=== PATIENT | male | born 1985 | race Caucasian/White ===

== ENCOUNTER 2017-05-14 05:46 | Inpatient (IN) | payer MEDICAID ==
[2017-05-14] VITALS (64 sets, daily range): BP systolic 80–163; BP diastolic 26–95
[~2017-05-14] VITALS: Ht 142.2 cm; Wt 34.9 kg
[~2017-05-14 05:46] MED LIST: ATI2I IVP; BISA10SU46 RC; BLOO1STR10 MC; DOCU60SY; HEPA500055 SUBQ; HUMSLIDE SUBQ; IBUP100S22; LAS20I IVP; ONDA2SOL45 IM/IVP; POLYO TP; [UNRECOGNIZED DRUG - CODE]
--- NOTE | 2017-05-14 05:48 | NUR ---
[facility] TO ER BED 3
[2017-05-14] MEDS ORDERED: LEVOFLOXACIN 750 MG/D5W PREMIX 150 ML IV ONE (05:55)
[2017-05-14] MEDS ORDERED: NACL 0.9% 1,000 ML IV ONE ×2 (05:55→07:15)
[2017-05-14] MEDS ORDERED: PIPERACILLIN/TAZOBACTAM 3.375 GM in DEXTROSE 5% 50 ML IV ONE (05:55)
[2017-05-14] MEDS ORDERED: VANCOMYCIN 1,000 MG in DEXTROSE 5% 250 ML IV ONE (05:55)
--- NOTE | 2017-05-14 05:55 | NUR ---
32Y M BIB [facility] FROM [facility] HAVING RESPIRATORY DISTRESS, PT ON 100% NRB AND PT HAS TACHYPNEA, O2 SAT 95-98%. LUNGS WITH CRACKLES ALL OVER. PT UNRESPONSIVE WITH HX OF CP AND SZ. MONITORED CLOSELY. SBP 70-80'S AND DBP 40-50'S. ERMD AWARE AND WITH ORDERS TO START PT ON FLUIDS AND ABT'S.
[2017-05-14] MEDS ORDERED: ALBUTEROL SULFATE/IPRATROPIU 3 ML SOL IH ONE (06:00)
[2017-05-14] MEDS ORDERED: PIPERACILLIN/TAZOBACTAM 3.375 GM VIAL IV ONE (06:09)
[2017-05-14] MEDS ORDERED: VANCOMYCIN 1,000 MG VIAL ONE (06:10)
--- NOTE | 2017-05-14 06:35 | NUR ---
DR BRAMBILA INSERTED LT JUGULAR CENTRAL LINE W/O COMPLICATION. PROCEDURE TOLERATED WELL.
[2017-05-14 06:48] LABS: HEMOGLOBIN 8.1 g/dL (12.0-18.0); MEAN CORPUSCULAR HEMOGLOBIN 29 pg (27-31); MEAN CORPUSCULAR HGB CONC 33 g/dL (33-37); MEAN CORPUSCULAR VOLUME 90 fL (80-94); PLATELET COUNT (AUTO) 105 K/uL (140-450); RED BLOOD CELL COUNT(AUTO) 2.78 MIL/uL (4.20-6.10); RED CELL DISTRIBUTION WIDTH 17.6 % (11.6-13.7); WHITE BLOOD COUNT (AUTO) 3.5 K/uL (4.8-10.8)
[2017-05-14 06:56] LABS: ALBUMIN 1.3 g/dL (3.4-5.0); ANION GAP 12.3 (8-16); CARBON DIOXIDE 23.9 mmol/L (21-32); CREATININE 0.4 mg/dL (0.7-1.3); TOTAL BILIRUBIN 0.2 mg/dL (0.0-1.0); TOTAL PROTEIN, SERUM 4.6 g/dL (6.4-8.2)
[2017-05-14] MEDS ORDERED: NOREPINEPHRINE 4 MG in DEXTROSE 5% 250 ML IV ONE (07:00)
--- NOTE | 2017-05-14 07:10 | NUR ---
PT NOTED W/ IV 22 GAUGE TO RT FA, PER PREVIOUS RN, ESTABLISHED IN FIELD, IV 20 GAUGE TO LEFT FA, ESTABLISHED BY PREVIOUS RN, AND CENTRAL LINE TO LEFT JUGULAR ESTABLISHED BY ER MD DR. RUIZ; IV SITES PATENT, NO REDNESS OR INFILTRATION NOTED TO SITES AT THIS TIME. WILL CONTINUE TO MONITOR.
[2017-05-14 07:11] LABS: POTASSIUM 2.2 mmol/L (3.5-5.1)
[2017-05-14 07:12] LABS: CALCIUM 5.3 mg/dL (8.5-10.1)
[2017-05-14] MEDS ORDERED: CALCIUM CHLORIDE 10% 1,000 MG in NACL 0.9% 100 ML IV ONE (07:15)
[2017-05-14] MEDS ORDERED: POTASSIUM CHLORIDE 20% 40 MEQ/15 ML UDC PEG ONE (07:15)
[2017-05-14] MEDS ORDERED: KCL 20 MEQ/WATER INJ PREMIX 200 ML IV ONE (07:15)
[2017-05-14] MEDS ORDERED: NOREPINEPHRINE 4 MG/4 ML VIAL IV ONE (07:17)
[2017-05-14 07:19] LABS: BLOOD GAS HCO3 25.8 mmol/L; BLOOD GAS O2 SAT% 99.1 % (92.0-98.5); BLOOD GAS PCO2 66.6 mmHg (20-50); BLOOD GAS PH 7.206 (7.35-7.45); BLOOD GAS PO2 197.6 mmHg
[2017-05-14 07:20] LABS: BAND % (MANUAL) 25 % (0-8); LACTIC ACID 3.1 mmol/L (0.4-2.0); LYMPHOCYTES % (MANUAL) 17 % (20-46); MONOCYTES % (MANUAL) 15 % (5-12); NEUTROPHILS % (MANUAL) 41 (43-65)
--- NOTE | 2017-05-14 07:20 | NUR ---
REPORT GIVEN TO HAYDEN FRIEND.
[2017-05-14 07:22] LABS: INR 1.9 (0.8-1.2); PLATELET ESTIMATE DECREASED; PROTHROMBIN TIME 19.4 secs (10.8-13.4)
--- NOTE | 2017-05-14 07:34 | NUR ---
PT PLACED ON BIPAP REQUESTED BY ER PHYSICIAN BASED OFF OF ABG RESULTS. PT IS SLIGHTLY AGITATED AT THIS TIME. BIPAP ALARMS ARE ON AND FUNCTIONING AND BIPAP IS PLUGGED INTO RED OUTLET.
--- NOTE | 2017-05-14 08:40 | NUR ---
SPOKE W/ DULCE RN IN ICU; RN TRANSFERRING PT TO FLOOR; WILL CALL BACK FOR REPORT.
[2017-05-14] MEDS: NACL 0.9% 1,000 ML IV SCH ×2 (09:02→16:59)
--- NOTE | 2017-05-14 09:02 | NUR ---
AT 0815 SEVERAL ATEMPTS TO INSERT CERRATO UNABLE TO OBTAIN URINE.
[2017-05-14] MEDS ORDERED: HYDROcodone/APAP 5/325 MG 1 TAB TAB PO PRN (09:05)
[2017-05-14] MEDS ORDERED: ACETAMINOPHEN 325 MG TAB PO PRN (09:05)
[2017-05-14] MEDS ORDERED: ONDANSETRON 4 MG/2 ML VIAL IVP PRN (09:05)
[2017-05-14] MEDS ORDERED: MORPHINE SULFATE 2 MG/ML SYR IVP PRN (09:05)
--- NOTE | 2017-05-14 09:10 | NUR ---
PT BP READING 29/; PT APPEARS TO BE ANUP ARM; CHANGED TO PORTABLE BLOOD PRESSURE CUFF ;REPOSITIONED CUFF AND PT; UNABLE TO OBTAIN BLOOD PRESSURE; NOREPINEPHRINE ORDERED BY ER MD TITRATED TO 22 MCG/MIN; PT AWAKE AND ALERT AT THIS TIME; PT APPEARS TO BE TOLERATING BI-PAP MACHINE WELL; ER MD DR. WILSON NOTIFIED; WILL CONTINUE TO MONITOR.
--- NOTE | 2017-05-14 09:25 | NUR ---
REPORT GIVEN TO [facility] CARDONA.
--- NOTE | 2017-05-14 09:38 | NUR ---
Patient will be admitted to care of DR. PRATT. Admited to ICU. Will go to room ICU 1. Belongings list completed. Report to [facility] CARDONA.
[2017-05-14 09:39] LABS: FREE T4 (FREE THYROXINE) 0.7 ng/dL (0.76-1.46); MAGNESIUM 1.4 mg/dL (1.8-2.4); PHOSPHORUS 3.6 mg/dL (2.5-4.9); THYROID STIMULATING HORMONE 0.75 uIU/mL (0.34-3.74)
--- NOTE | 2017-05-14 09:45 | NUR ---
RECEIVED FROM ER IN [facility] ,ADM TO ICU # 1 SHE IS ON BIPAP 12/5 FIO2 80% HIS O2 SAT 89% AT THE TIME IV FLUID HAS TLX ON LEFT IJ. PERIPHERAL LINE#22 ON RT ARM AND #20 ON LT ARM. HAS LEVOPHED IV DRIP AT 20 MCG/HR. AND K RIDER IS RUNNING. IS SKIN IS DRY AND INTACT. HIS EXTREMITIES ARE CONTRACTED .HIS G TUBE CLAMPED NO FEEDING AT THE TIME.
--- NOTE | 2017-05-14 11:00 | NUR ---
SPOKE TO DR. BEY RE: ER UNABLE TO INSERT CERRATO CATH (ATTEMPTED 3X) CONDOM CATH APPLIED. ALSO MADE AWARE OF REDNESS IN THE SCROTAL AND PENILE AREAS.
[2017-05-14] MEDS ORDERED: ALBUTEROL SULFATE/IPRATROPIU 3 ML SOL IH PRN (11:05)
--- NOTE | 2017-05-14 11:23 | NUR ---
DR. MUHAMMAD AT BEDSIDE TO SEE PT. REPORTED DR. MUHAMMAD ABOUT LACTIC ACID OF 5.3. MD AWARE. AWAIT FURTHER ORDERS.
--- NOTE | 2017-05-14 11:29 | NUR ---
TOOL OCCULT BLOOD COLLECT BY DR Almanzar SENT TO LAB.
[2017-05-14] MEDS ORDERED: PIPER/TAZO 3.375GM/D5W PREMIX 50 ML IV SCH (12:00)
[2017-05-14] MEDS ORDERED: NOREPINEPHRINE 4 MG in DEXTROSE 5% 250 ML IV PRN (12:10)
[2017-05-14 12:54] LABS: ANION GAP 9.9 (8-16); CARBON DIOXIDE 29.1 mmol/L (21-32); CREATININE 0.6 mg/dL (0.7-1.3)
--- NOTE | 2017-05-14 13:00 | NUR ---
STILL NO URINE OUTPUT. DR. MUHAMMAD AWARE.
[2017-05-14] MEDS ORDERED: HYDRAGUARD CREAM TP PRN (13:35)
[2017-05-14] MEDS: PIPER/TAZO 2.25GM/D5W PREMIX 50 ML IV SCH ×3 (14:29→23:47)
[2017-05-14] MEDS: ALBUTEROL SULFATE/IPRATROPIU 3 ML SOL IH SCH ×3 (15:23→23:29)
--- NOTE | 2017-05-14 15:33 | NUR ---
PT NASALLY SUCTIONED OBTAINED SMALL AMOUNT OF THICK SECRETIONS. MASK SIZE CHANGED TO MEDIUM SLIGHT REDNESS AROUND BRIDGE OF NOSE NO BREAKDOWN, PROTECTA GEL REMAINS UNDER MASK. WILL CONTINUE TO MONITOR.
[2017-05-14] MEDS ORDERED: MILD SOAP AND WATER TP SCH (17:00)
--- NOTE | 2017-05-14 17:00 | NUR ---
REPOSITION SKINCARE AND WOUND CARE GIVEN.
--- NOTE | 2017-05-14 19:10 | NUR ---
PT.SLEEPING QUIETLEY. REPORT GIVE TO CATRACHITO FRIEND.
--- NOTE | 2017-05-14 19:15 | NUR ---
RECEIVED REPORT FROM BARBIE RN AT BEDSIDE, PT IS AWAKE, OPEN EYES, NON-VERBAL,UNABLE TO FOLLOW COMMANDS AND MAKE NEEDS KNOWN. VSS. FLACC 0. NO S/S OF SOB, BREATHING EVEN AND UNLABORED, ON BIPAP AT FIO2 50, I/E 12/5, RATE 14, CLEAR LUNG SOUNDS, NO S/S OF CHEST PAIN, SR ON CONTINUITY TESTER, SOFT ABDOMEN WITH ACTIVE BOWEL SOUNDS, GT TUBE IN PLACE, FLUSHED, PATENT WITH 0 RESIDUAL, INCONTINENT WITH B&B'S, GENERALIZED WEAKNESS TO ALL EXTREMITIES, SKIN IS WARM AND DRY TO TOUCH, REDNESS TO PERINEAL AREA NOTED. CENTRAL LINE TO LEFT IJ TRIPLE LUMEN, FLUSHED WITH NS, PATENT WITH GOOD BLOOD RETURN, RUNNING LEVOPHED 2 MCG/HR AND NS AT 100 ML/HR. PERIPHERAL IV SITE TO RIGHT FOREARM 20GA, AND 22 GA, LEFT FOREARM 20GA, PATENT AND SL, SAFETY PRECAUTION AND ASPIRATION PRECAUTION IN PLACE, POSITION CHANGED FOR OFF LOAD PRESSURE, WILL CONTINUE TO MONITOR.
--- NOTE | 2017-05-14 19:29 | NUR ---
WEANED FIO2 TO 45%.
--- NOTE | 2017-05-14 21:28 | NUR ---
INCREASED FIO2 BACK TO 50%.
--- NOTE | 2017-05-14 22:00 | NUR ---
NO CHANGE OF CONDITION AT THIS TIME, VSS. POSITION CHANGED FOR OFF LOAD PRESSURE.
[2017-05-15] VITALS (51 sets, daily range): BP systolic 68–129; BP diastolic 37–86
--- NOTE | 2017-05-15 | NUR ---
VSS. NO S/S OF DISTRESS, HAD A SMALL YELLOWISH SOFT BOWEL MOVEMENT, WILLIS CARE PROVIDED, POSITION CHANGED FOR OFF LOAD PRESSURE.
--- NOTE | 2017-05-15 02:00 | NUR ---
NO CHANGE OF CONDITION AT THIS TIME, VSS, POSITION CHANGED FOR OFF LOAD PRESSURE.
[2017-05-15] MEDS: ALBUTEROL SULFATE/IPRATROPIU 3 ML SOL IH SCH ×6 (03:27→22:25)
--- NOTE | 2017-05-15 03:27 | NUR ---
WEANED FIO2 TO 45%.
--- NOTE | 2017-05-15 04:00 | NUR ---
AM CARE PROVIDED, WILLIS CARE PROVIDED, STILL ON LEVOPHED DRIP, NO S/S OF DISTRESS, POSITION CHANGED FOR OFF LOAD PRESSURE.
[2017-05-15] MEDS: NACL 0.9% 1,000 ML IV SCH ×2 (04:24→14:34)
[2017-05-15] MEDS: MILD SOAP AND WATER TP PRN (04:25)
--- NOTE | 2017-05-15 05:13 | NUR ---
WEANED FIO2 TO 40%.
--- NOTE | 2017-05-15 06:00 | NUR ---
NO CHANGE OF CONDITION AT THIS TIME, VSS, POSITION CHANGED FOR OFF LOAD PRESSURE.
[2017-05-15] MEDS: PIPER/TAZO 2.25GM/D5W PREMIX 50 ML IV SCH ×3 (06:07→17:53)
[2017-05-15 06:10] LABS: HEMATOCRIT 29.6 % (36-52); HEMOGLOBIN 9.3 g/dL (12.0-18.0); MEAN CORPUSCULAR HEMOGLOBIN 29 pg (27-31); MEAN CORPUSCULAR HGB CONC 32 g/dL (33-37); MEAN CORPUSCULAR VOLUME 92 fL (80-94); PLATELET COUNT (AUTO) 43 K/uL (140-450); RED BLOOD CELL COUNT(AUTO) 3.22 MIL/uL (4.20-6.10); RED CELL DISTRIBUTION WIDTH 18.1 % (11.6-13.7); WHITE BLOOD COUNT (AUTO) 8.7 K/uL (4.8-10.8)
[2017-05-15 06:21] LABS: ANION GAP 8.5 (8-16); CALCIUM 8.4 mg/dL (8.5-10.1); CARBON DIOXIDE 31.1 mmol/L (21-32); CREATININE 0.5 mg/dL (0.7-1.3); POTASSIUM 3.6 mmol/L (3.5-5.1)
[2017-05-15 06:28] LABS: CHOL/HDL RATIO 8.3 (1-4.5); MAGNESIUM 1.5 mg/dL (1.8-2.4); PHOSPHORUS 3.2 mg/dL (2.5-4.9)
[2017-05-15 06:44] LABS: BAND % (MANUAL) 50 % (0-8); NEUTROPHILS % (MANUAL) 21 (43-65)
[2017-05-15 06:45] LABS: ANISOCYTOSIS 1+; EOSINOPHILS % (MANUAL) 4 % (0-4); LYMPHOCYTES % (MANUAL) 16 % (20-46); MONOCYTES % (MANUAL) 9 % (5-12); PLATELET ESTIMATE DECREASED
--- NOTE | 2017-05-15 07:08 | NUR ---
RECEIVED PT ON BIPAP. SETTINGS 12/, R14, FIO2 40%. PT HAS PROTECTA-GEL PLACED UNDER MASK WITH MINIMAL REDNESS BUT NO SKIN BREAKDOWN. PT IS ASLEEP BUT OPENS HIS EYES TO HIS NAME BEING CALLED OR STIMULATION. BIPAP IS PLUGGED INTO RED OUTLET WITH ALARMS SET, ON AND FUNCTIONING. B.S ARE COARSE AND SLIGHTLY DIMINISHED. WILL CONTINUE TO MONITOR.
--- NOTE | 2017-05-15 07:15 | NUR ---
REPORT GIVEN TO [facility] VALENTIN AT BEDSIDE FOR CONTINUE OF CARE, PT IS IN STABLE CONDITION AT THIS TIME.
--- NOTE | 2017-05-15 07:20 | NUR ---
RECEIVE REPORT TANIKA WINSTON RN. PTR IS BI PAP AT12/5 SKIN DRY WARM TO TOUCH .HAS REDNESS OVER THE PERINEAL AREA. GG TUBE CLAMP. NPO. HAS TLC ON LEFT IJ.
--- NOTE | 2017-05-15 07:30 | NUR ---
LEVOPHED AT 2MCG/MIN AND NS AT 100ML/HR GTUBE OLAMP NPO AT THETIME .HAVE CLEAR YELLOW URINE IN COLLECTING BAG .
--- NOTE | 2017-05-15 08:15 | NUR ---
SEEN BY DR. PRATT AND HIS TEAM ORDER RECEIVED.
[2017-05-15] MEDS ORDERED: NOREPINEPHRINE 4 MG in DEXTROSE 5% 250 ML IV PRN (08:45)
--- NOTE | 2017-05-15 09:12 | NUR ---
PATIENT HAS BEEN SCREENED AND CATEGORIZED HIGH NUTRITION RISK. PATIENT WILL BE SEEN WITHIN 1-2 DAYS OF ADMISSION. 05/14/17-05/15/[address]
[2017-05-15 09:14] LABS: BLOOD GAS PCO2 61.7 mmHg (20-50); BLOOD GAS PH 7.304 (7.35-7.45)
[2017-05-15 09:15] LABS: BLOOD GAS BASE EXCESS 2.6 mmol/L (-2.0-2.0); BLOOD GAS O2 SAT% 97.9 % (92.0-98.5); BLOOD GAS PO2 108.2 mmHg
--- NOTE | 2017-05-15 09:23 | NUR ---
ABG RESULTS GIVEN TO AND . NEW BIPAP SETTINGS REQUESTED BY PHYSICIAN /, R14, FIO2 30%.
[2017-05-15] MEDS ORDERED: MAG SULF 2000 MG/WATER PREMIX 50 ML IV STA (10:40)
--- NOTE | 2017-05-15 11:00 | NUR ---
SPOKE WITH OVER THE PHONE UPDATED PHYSICIAN ON PT STATUS, ABG RESULTS AND BIPAP SETTINGS. MADE NEW ORDERS TO GO UP TO 16/, R14, FIO2 30%. WILL CONTINUE TO MONITOR.
[2017-05-15] MEDS: MILD SOAP AND WATER TP SCH (13:00)
--- NOTE | 2017-05-15 13:59 | NUR ---
05/15/17 RD INITIAL ASSESSMENT COMPLETED PLEASE REFER TO NUTRITION ASSESSMENT UNDER CARE ACTIVITY FOR ESTIMATED NUTRITIONAL NEEDS. RD RECOMMENDATIONS: 1. CONTINUE NUTREN PULMONARY AT 20 ML/HR WITH GOAL RATE OF 40 ML/HR WITH 100 ML OF FREE WATER FLUSH Q6H TOLERATED AND PER MD. -PT TOLERATING CURRENT TF WELL WITH NO GI SYMPTOMS PER RN. 2. IF PT IS TOLERATING CURRENT TUBE FEEDING AT 20 ML/HR WELL, INCREASE TUBE FEEDING RATE TO GOAL RATE OF 40 ML/HR TOLERATED. ---TUBE FEEDING AT GOAL RATE IS ADEQUATE TO MEET >100% OF PT ESTIMATED KCAL AND PROTEIN NEEDS. 3. RD WILL F/U 2-3 DAYS; HIGH RISK. JIM VARGAS RD
--- NOTE | 2017-05-15 17:04 | NUR ---
BIPAP REMOVED BY ICU NURSES DUE TO REDNESS AND SKIN BREAKDOWN FROM MASK. PT PLACED ON 50% VENTURI MASK. PT IS AWAKE AND IS TOLERATING WELL AT THIS TIME SPO2 99%. PT NOT SOB AND NOT IN RESPIRATORY DISTRESS. RR IS LOW 20'S. WILL CONTINUE TO MONITOR.
--- NOTE | 2017-05-15 17:15 | NUR ---
RECEIVED CALL FROM LAB REGARDING BLOOD CULTURE RESULT. NOTIFIED. NO NEW ORDER OBTAINED
--- NOTE | 2017-05-15 19:00 | NUR ---
PER DR. WRIGHT, KEEP BIPAP PRN SINCE PATIENT NOSE HAS SKIN BREAKDOWN AND KEEP SAO2 GREATER THAN 92% ON NASAL CANNULA. PATIENT ON 4LPM SAO2 100% AND AT 2100- DECREASE FIO2 VIA NASAL CANNULA TO 2LPM SAO2 IS 99% HR-94, PATIENT IS AWAKE AND ALERT AND NO RESPIRATORY DISTRESS NOTED
--- NOTE | 2017-05-15 19:30 | NUR ---
REPORT GIVEN TO DAWOOD FRIEND.
--- NOTE | 2017-05-15 19:31 | NUR ---
RECEIVED REPORT FROM [facility] VALENTIN. INITIAL ASSESSMENT COMPLETED. PT IS NON-VERBAL, DOES NOT FOLLOW COMMANDS. O2 @ 4LPM VIA NASAL CANNULA. ATTACHED TO FINANCE MANAGER AND PULSE OXIMETER. ON CONTINUOUS GT FEEDING AT 30ML/HR. NO RESIDUAL AT THIS TIME. IV AT LEFT IJ TLC INFUSING WELL. SALINE LOCK AT RIGHT FOREARM 22G, 20G, LEFT FOREARM 20G, PATENT, INTACT AT THIS TIME. REDNESS AT PERINEAL AREA, AND PENILE REDNESS AND SWELLING. BED IN LOW POSITION, SAFETY MEASURE ENSURE. WILL CONTINUE TO MONITOR.
--- NOTE | 2017-05-15 21:00 | NUR ---
RT AT BEDSIDE, O2 DECREASED AT 2LPM VIA NASAL CANNULA. O2 SAT 100%. WILL CONTINUE TO MONITOR.
[2017-05-15] MEDS: HYDRAGUARD CREAM TP SCH (21:25)
--- NOTE | 2017-05-15 23:18 | NUR ---
PT AWAKE, NO SIGNS OF DISTRESS AT THIS TIME.
[2017-05-16] VITALS (8 sets, daily range): BP systolic 113–142; BP diastolic 66–88
[2017-05-16] MEDS: MILD SOAP AND WATER TP SCH ×2 (00:43→13:00)
[2017-05-16] MEDS: NACL 0.9% 1,000 ML IV SCH ×2 (00:43→15:21)
[2017-05-16] MEDS: PIPER/TAZO 2.25GM/D5W PREMIX 50 ML IV SCH ×5 (00:43→23:36)
[2017-05-16] MEDS: ALBUTEROL SULFATE/IPRATROPIU 3 ML SOL IH SCH ×6 (03:09→22:42)
--- NOTE | 2017-05-16 03:45 | NUR ---
PT AWAKE, NO SIGNS OF DISTRESS AT THIS TIME
--- NOTE | 2017-05-16 04:20 | NUR ---
MORNING CARE DONE. WILL CONTINUE TO MONITOR
[2017-05-16 05:01] LABS: HEMATOCRIT 28.6 % (36-52); MEAN CORPUSCULAR HEMOGLOBIN 29 pg (27-31); MEAN CORPUSCULAR HGB CONC 31 g/dL (33-37); MEAN CORPUSCULAR VOLUME 91 fL (80-94); PLATELET COUNT (AUTO) 47 K/uL (140-450); RED BLOOD CELL COUNT(AUTO) 3.14 MIL/uL (4.20-6.10); RED CELL DISTRIBUTION WIDTH 18.2 % (11.6-13.7); WHITE BLOOD COUNT (AUTO) 9.4 K/uL (4.8-10.8)
[2017-05-16 05:16] LABS: BAND % (MANUAL) 8 % (0-8); EOSINOPHILS % (MANUAL) 3 % (0-4); LYMPHOCYTES % (MANUAL) 3 % (20-46); MONOCYTES % (MANUAL) 10 % (5-12); NEUTROPHILS % (MANUAL) 76 (43-65)
--- NOTE | 2017-05-16 05:20 | NUR ---
DR. MUHAMMAD AT BEDSIDE, AWARE OF PT'S PENILE SWELLING AND REDNESS. SHE SAID IT'S BETTER NOW. WILL CONTINUE TO MONITOR.
[2017-05-16 06:04] LABS: ANION GAP 6.9 (8-16); CALCIUM 7.9 mg/dL (8.5-10.1); CARBON DIOXIDE 33.1 mmol/L (21-32); CREATININE 0.4 mg/dL (0.7-1.3)
--- NOTE | 2017-05-16 07:26 | NUR ---
RECEIVED PT ON 2L NC, SPO2 99%. PT IS NOT SOB AND NOT IN RESPIRATORY DISTRESS AT THIS TIME. BIPAP IS BEDSIDE BUT NOT INDICATED AT THIS TIME. WILL CONTINUE TO MONITOR.
--- NOTE | 2017-05-16 07:30 | NUR ---
REPORT GIVEN TO [facility] PERALTA FOR CONTINUITY OF CARE.
--- NOTE | 2017-05-16 07:45 | NUR ---
AWAKE, TRIES TO TALK BUT SPEECH IS GARBLED. DOES NOT FOLLOW COMMANDS. MOVES UPPER EXT. TRIES TO TAKE CANNULA OFF. IMPT. OF EXPLAINED TO PT. INCONTINENT OF LARGE AMT. URINE. PERINEAL CARE DONE. IV NS INFUSING AT 100ML/HR VIA LEFT IJ TLC.
--- NOTE | 2017-05-16 08:00 | NUR ---
RESTLESS ON AND OFF. KEEPS ON MOVING UPPER EXT. HR INCREASES WHEN RESTLESS.
[2017-05-16] MEDS: LACTOBACILLUS RHAMNOSUS GG 1 EACH CAP PO SCH (08:45)
[2017-05-16] MEDS: HYDRAGUARD CREAM TP SCH ×2 (08:47→20:57)
[2017-05-16] MEDS: MILD SOAP AND WATER TP PRN (08:47)
--- NOTE | 2017-05-16 09:00 | NUR ---
DR. ABDUL NOTIFIED OF K+ 3.0.
[2017-05-16 09:42] LABS: INR 1.1 (0.8-1.2); PROTHROMBIN TIME 11.5 secs (10.8-13.4)
--- NOTE | 2017-05-16 10:00 | NUR ---
IV DECREASED TI 40 ML/HR. Addendum: 05/16/17 at 1210 by Yesy Carrillo RN TO INSTEAD OF TI.
--- NOTE | 2017-05-16 11:30 | NUR ---
INCONTINENT OF LARGE AMT. OF YELLOW URINE. PERINEAL CARE DONE.
[2017-05-16] MEDS ORDERED: PROBIOTIC SCREEN 1 EA MISC MC PRN (11:50)
--- NOTE | 2017-05-16 12:00 | NUR ---
GT RESIDUAL 0.
--- NOTE | 2017-05-16 12:30 | NUR ---
TOOK NASAL CANNULA OFF. 02 SAT. DROPS TO LOW 80'S WHEN 02 IS OFF. REAPPLIED. INSTRUCTED PT. ON IMPT. OF KEEPING 02 CANNULA ON.
--- NOTE | 2017-05-16 15:00 | NUR ---
DR. PIERCE HERE TO SEE AND EXAMINE PT.
--- NOTE | 2017-05-16 15:15 | NUR ---
INCONTINENT OF URINE AND SMALL AMT SOFT BROWNISH STOOLS. BATH GIVEN. ORAL CARE DONE.
--- NOTE | 2017-05-16 15:50 | NUR ---
G TUBE RESIDUAL 0.
[2017-05-16] MEDS: NACL 0.45% 1,000 ML IV SCH (15:55)
[2017-05-16] MEDS ORDERED: POTASSIUM CHLORIDE 20% 40 MEQ/15 ML UDC GT SCH (16:00)
[2017-05-16] MEDS ORDERED: POTASSIUM CHLORIDE 10 MEQ TABER PO SCH (16:00)
--- NOTE | 2017-05-16 16:00 | NUR ---
IV CHANGED TO 0.45% NS AT 50 ML/HR. KCL 40MEQ GIVEN THRU G TUBE.
--- NOTE | 2017-05-16 17:00 | NUR ---
AWAKE, RESTLESS, MOVING UPPER EXT. A LOT. SOCKS PLACED OVER HANDS TO PREVENT FROM PULLING TUBES.
--- NOTE | 2017-05-16 17:30 | NUR ---
TOOK 02 CANNULA OFF AND PULLED TRIPLE LUMEN CATHETER. LARGE AMT. OF BLEEDING NOTED. PRESSURE APPLIED TO SITE X 15 MIN. UNTIL BLEEDING STOPPED. COMPLETE BED BATH DONE. LINENS CHANGED. IV RESTARTED ON RT FA WITH G 22 ANGIO X 1 ATTEMPT. LT. FA IV SITE REDDENED, DC'D.
--- NOTE | 2017-05-16 18:00 | NUR ---
STILL RESTLESS ON AND OFF. G TUBE RESIDUAL 0. NEW FEEDING BAG AND TUBING STARTED.
--- NOTE | 2017-05-16 19:00 | NUR ---
REPORT GIVEN TO [facility] WILCOX
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
--- NOTE | 2017-05-16 20:00 | NUR ---
CRITICAL LAB VALUE RECEIVED. GRAM STAIN SHOWED GRAM NEGATIVE RODS. WILL CONTACT PHYSICIAN WITH RESULTS AND ORDERS.
--- NOTE | 2017-05-16 20:27 | NUR ---
SPOKE TO DR. MAY REGARDING PATIENT'S GRAM STAIN SHOWING GRAM NEGATIVE RODS. NO NEW ORDERS GIVEN AT THIS TIME. CONTINUE TO MONITOR PATIENT.
--- NOTE | 2017-05-16 20:40 | NUR ---
PATIENT VOIDED MODERATE AMOUNT OF CLEAR YELLOW URINE ON PERIPAD. PERINEAL CARE PROVIDED. PATIENT REPOSITIONED TO OFFLOAD PRESSURE AREAS. NO SIGNS OF SOB NOTED. HOB AT 30 DEGREES WITH BED IN LOW POSITION. WILL CONTINUE TO MONITOR PATIENT.
--- NOTE | 2017-05-16 22:19 | NUR ---
PATIENT VOMITED. ADMINISTERED ZOFRAN 4MG IVP PER DOCTOR'S ORDERS. PROVIDED ORAL SUCTIONING. CLEANED PATIENT AND CHANGED GOWN. CONTINUE TO MONITOR. Addendum: 05/16/17 at 2302 by Del Willingham RN TUBE FEEDING HELD R/T PATIENT VOMITING.
--- NOTE | 2017-05-16 22:30 | NUR ---
RESPIRATORY THERAPIST DANAE AT BEDSIDE.
--- NOTE | 2017-05-16 22:46 | NUR ---
2230 PLACED PATIENT ON 100% NRB MASK DUE TO SATS DROPPING TO SEVENTIES. HHNTX GIVEN TO PATIENT AND SATS INCREASED TO HIGH NINETYS. PT BACK ON NASAL CANNULA OF THREE LITERS POST HHNTX. WILL CONTINUE TO MONITER
[2017-05-17] VITALS: BP 102/62
--- NOTE | 2017-05-17 00:10 | NUR ---
PATIENT RESTING COMFORTABLY IN BED. NO SIGNS OF SOB OR RESPIRATORY DISTRESS NOTED. HOB AT 30 DEGREES WITH BED IN LOW POSITION. WILL CONTINUE TO MONITOR PATIENT.
[2017-05-17] MEDS: MILD SOAP AND WATER TP SCH ×2 (01:36→13:00)
--- NOTE | 2017-05-17 02:00 | NUR ---
PATIENT VOIDED MODERATE AMOUNT OF CLEAR YELLOW URINE AND HAD SCANTY BROWNISH YELLOW PASTY BM. PERINEAL CARE PROVIDED. HYDRAGUARD APPLIED TO SCROTAL AND PERINEAL AREAS. REPOSITIONED PATIENT FOR COMFORT. NO SIGNS OF DISTRESS OR SOB NOTED. HOB AT 30 DEGREES WITH BED IN LOW POSITION. WILL CONTINUE TO MONITOR PATIENT.
[2017-05-17] MEDS: ALBUTEROL SULFATE/IPRATROPIU 3 ML SOL IH SCH ×6 (03:01→23:07)
--- NOTE | 2017-05-17 03:10 | NUR ---
RESPIRATORY THERAPIST AT BEDSIDE ADMINISTERING SCHEDULED BREATHING TX.
[2017-05-17 04:00] VITALS: BP 104/65
--- NOTE | 2017-05-17 04:40 | NUR ---
INFORMATION SYSTEMS ARCHITECT AT BEDSIDE FOR SCHEDULED MORNING LAB DRAWS.
[2017-05-17 04:58] LABS: HEMATOCRIT 24.7 % (36-52); HEMOGLOBIN 7.9 g/dL (12.0-18.0); MEAN CORPUSCULAR HEMOGLOBIN 29 pg (27-31); MEAN CORPUSCULAR HGB CONC 32 g/dL (33-37); MEAN CORPUSCULAR VOLUME 90 fL (80-94); PLATELET COUNT (AUTO) 59 K/uL (140-450); RED BLOOD CELL COUNT(AUTO) 2.73 MIL/uL (4.20-6.10); RED CELL DISTRIBUTION WIDTH 18.7 % (11.6-13.7); WHITE BLOOD COUNT (AUTO) 9.8 K/uL (4.8-10.8)
[2017-05-17] MEDS: PIPER/TAZO 2.25GM/D5W PREMIX 50 ML IV SCH ×3 (05:02→17:26)
[2017-05-17 05:09] LABS: INR 1.2 (0.8-1.2); PROTHROMBIN TIME 12.5 secs (10.8-13.4)
[2017-05-17 05:12] LABS: CALCIUM 7.5 mg/dL (8.5-10.1); CARBON DIOXIDE 35.9 mmol/L (21-32); CREATININE 0.4 mg/dL (0.7-1.3)
--- NOTE | 2017-05-17 05:40 | NUR ---
REPORT GIVEN TO [facility] HICKS. PATIENT WILL BE TRANSFERRED TO [facility] UNIT ROOM 121B.
[2017-05-17] MEDS ORDERED: KCL 20 MEQ/WATER INJ PREMIX 200 ML IV ONE (05:45)
[2017-05-17] MEDS ORDERED: POTASSIUM CHLORIDE 20% 40 MEQ/15 ML UDC GT ONE (05:45)
[2017-05-17 05:46] LABS: POTASSIUM 2.9 mmol/L (3.5-5.1)
--- NOTE | 2017-05-17 06:00 | NUR ---
PATIENT TRANSFERRED TO [facility] ROOM 121B WITH FLOOR CARE SPECIALIST UNRULY FRIEND AND YEN RICKS. NO SIGNS OF DISTRESS OR SOB NOTED.
[2017-05-17 06:10] VITALS: BP 114/71
--- NOTE | 2017-05-17 06:10 | NUR ---
RECEIVED REPORT FROM JERI FRIEND FOR CONTINUITY OF CARE. 32 Y.O. MALE BROUGHT TO UNIT WITH DX: SEPTIC SHOCK. PATIENT IS A&OX1. NO S/S OF RESPIRATORY DISTRESS NOTED ON 3L NC. FLACC-0. PT HAS RT FA IV 22 GAUGE PATENT AND INFUSING FLUIDS WELL. PT HAS G TUBE WITH TUBE FEEDING IN PLACE. PT ALSO HAS INCONTINENT DERMATITIS NOTED. SAFETY PRECAUTIONS ENFORCED. BED IN LOWEST POSITION WITH BED ALARM ON. WILL CONTINUE TO MONITOR FREQUENTLY.
[2017-05-17 06:11] LABS: PLATELET ESTIMATE DECREASED
[2017-05-17 06:20] LABS: BAND % (MANUAL) 31 % (0-8); EOSINOPHILS % (MANUAL) 3 % (0-4); LYMPHOCYTES % (MANUAL) 6 % (20-46); MONOCYTES % (MANUAL) 9 % (5-12); NEUTROPHILS % (MANUAL) 51 (43-65)
--- NOTE | 2017-05-17 06:42 | NUR ---
RECEIVED PT ON 3 LN/C SPO2 94 PT IS ANXIOUS WEARING SOFT MITTENS IN HF AWAKE BIPAP AT BEDSIDE POX IN PLACE Addendum: 05/17/17 at 0745 by Lis Cordon RT PT HAS SORE ON BRIDGE OF NOSE
--- NOTE | 2017-05-17 07:30 | NUR ---
ENDORSED PATIENT TO DAY RN FOR CONTINUITY OF CARE, PATIENT IS IN STABLE CONDITION.
--- NOTE | 2017-05-17 07:31 | NUR ---
RECEIVED REPORT FROM TRAFFIC DIVISION COMMANDING OFFICER NURSE AT BEDSIDE FOR CONTINUITY OF CARE. PT IS AWAKE AND ORIENTED. PT IS SHAKING AND AGITATED. NOTED THAT KCL IS RUNNING AT 50ML/HR. SLOWED IT DOWN TO 25ML/HR. NOTED THE G TUBE. FEEDING ON HOLD PER NURSE D/T VOMITING EARLY THIS MORNING. PT ON 3L NC. V/S WITHIN NORMAL BUT O2 SAT IS AT 82%. CALL R/T. INCREASE O2 TO 4 L IN MEANWHILE. SKIN-INCONTINENT DERMATITIS AND DTI AND BRIDGE OF NOSE. IV- R FA 22G 1/2 NS AT 50. K AND MG LOW THIS MORNING. PT HAS BI-PAP NEEDED. Kanwal LIU ON. WILL CONTINUE TO MONITOR PT.
--- NOTE | 2017-05-17 08:05 | NUR ---
CHANGE PT TO 35 % VENTURI MASK AT 9 L SPO2 97 PT WAS DESAT PH[facility] MARQUES PLACED OPTIFOAM ON BRIDGE OF NOSE POX IN PLACE
[2017-05-17] MEDS: LACTOBACILLUS RHAMNOSUS GG 1 EACH CAP PO SCH (09:00)
[2017-05-17] MEDS: HYDRAGUARD CREAM TP SCH ×2 (09:00→20:30)
--- NOTE | 2017-05-17 09:11 | NUR ---
CHARTING IN ROOM, WATCHING PT B/C HE IS TAKING THE REBREATHER MASK FROM HIS FACE. RESIDENT MD WAS IN HERE EARLIER AND NO NC AND NO MASK AND PT O2 SAT WAS AT 80%. SHE WAS WONDERING WHAT HAPPENED. EXPLAINED THAT HE KNOCKED IT OFF. RECOMMENDED SOFT RESTRAINTS FOR R WRIST POSSIBLY. HE IS SLEEPING COMFORTABLY. O2 SAT AT 98%
[2017-05-17 09:15] LABS: TRANSFERRIN 114 mg/dL (200 - 370)
[2017-05-17] MEDS ORDERED: MAG SULF 2000 MG/WATER PREMIX 50 ML IV SCH ×2 (09:19→15:09)
--- NOTE | 2017-05-17 10:58 | NUR ---
PT CHANGED TO 3L N\C SPO2 100 PT SLEEPING
--- NOTE | 2017-05-17 11:31 | NUR ---
DECREASE FIO2 TO 2L N/C SPO2 100 Addendum: 05/17/17 at 1142 by Lis Cordon RT ROSA CARMICHAEL PER DR FULLER
[2017-05-17 12:00] VITALS: BP 101/63
--- NOTE | 2017-05-17 12:12 | NUR ---
HELD THE POTASSIUM, STARTED THE ZOSYN. ONCE ZOSYN IS FINISHED, WE WILL RESUME THE KCL. CALLED PHARMACY RE. MAG ORDER. WILL CALL PHARMACY ONCE KCL IS FINISHED.
--- NOTE | 2017-05-17 12:45 | NUR ---
Social Service Note: I faxed patient's clinical information to [facility] . Per Anu from [facility], patient may return to room 9c upon discharge.
[2017-05-17 12:52] LABS: FERRITIN 512 ng/mL (30-400)
[2017-05-17 13:41] LABS: HEMOGLOBIN 8.3 g/dL (12.0-18.0); MEAN CORPUSCULAR HEMOGLOBIN 29 pg (27-31); MEAN CORPUSCULAR HGB CONC 32 g/dL (33-37); MEAN CORPUSCULAR VOLUME 91 fL (80-94); PLATELET COUNT (AUTO) 65 K/uL (140-450); RED BLOOD CELL COUNT(AUTO) 2.87 MIL/uL (4.20-6.10); RED CELL DISTRIBUTION WIDTH 18.9 % (11.6-13.7); WHITE BLOOD COUNT (AUTO) 10.3 K/uL (4.8-10.8)
--- NOTE | 2017-05-17 14:07 | NUR ---
CHECKED RESIDUAL. NONE. RESTARTED HIS FEEDING @ 20ML/HR. WILL CHECK TO SEE IF HE IS TOLERATING WELL.
[2017-05-17 14:21] LABS: BAND % (MANUAL) 23 % (0-8); EOSINOPHILS % (MANUAL) 4 % (0-4); HYPOCHROMASIA 1+; LYMPHOCYTES % (MANUAL) 14 % (20-46); METAMYELOCYTES % 1 % (0-0); MONOCYTES % (MANUAL) 11 % (5-12); NEUTROPHILS % (MANUAL) 47 (43-65); PLATELET ESTIMATE DECREASED
[2017-05-17] MEDS: NACL 0.45% 1,000 ML IV SCH (14:39)
--- NOTE | 2017-05-17 15:04 | NUR ---
R/T HERE FOR BREATHING TX. PT TOLERATED WELL. PT LESS RESTLESS AND LESS AGITATED.
--- NOTE | 2017-05-17 15:26 | NUR ---
MADHURI MENESES. PT TOLERATING WELL. WILL CONTINUE TO MONITOR PT. Addendum: 05/17/17 at 1531 by Karuna Kenney RN CALLED R/T. PT'S O2 SAT IS BELOW 86%.
[2017-05-17 16:00] VITALS: BP 91/56
--- NOTE | 2017-05-17 17:32 | NUR ---
MAG RIDER FINISHED. ADMINISTERED ZOSYN. PT TOLERATED WELL. SLEEPING COMFORTABLY. O2 SATING 96%. ENDORSED PT TO PH[facility] TEJADA. PT IN STABLE CONDITION.
--- NOTE | 2017-05-17 17:40 | NUR ---
PT AWAKE AND RESPONSIVE, NO SIGNS OF ACUTE DISTRESS. OFFLOAD TO PRESSURE AREAS, CONTINUE TO MONITOR.
--- NOTE | 2017-05-17 18:02 | NUR ---
PT RESTING WELL IN BED, AWAKE AND RESPONSIVE, NO SIGNS OF ACUTE DISTRESS. WILL ENDORSE TO ONCOMING PLACEMENT COORDINATOR NURSE FOR CONTINUITY OF CARE.
--- NOTE | 2017-05-17 19:20 | NUR ---
RECEIVED REPORTS FROM DAY RN. PATIENT RESTING IN BED, OPENED HIS EYES WHEN NAME WAS CALLED. NO S/S OF ACUTE DISTRESS NOTED, RESPIRATION EVEN AND UNLABORED, ON NC O2 4L. IV PATENT AND INTACT, FLUSHED WITH NORMAL SALINE. NOTED PATIENT HAS G-TUBE FEEDING AT 20ML/HR. CALL LIGHT WITHIN REACH, SAFETY MEASURE ENSURED, WILL CONTINUE TO MONITOR.
[2017-05-17 20:00] VITALS: BP 134/85
--- NOTE | 2017-05-17 20:45 | NUR ---
O2 SAT 85%, RESPIRATORY THERAPY CALLED IN, CHANGED NC TO SIMPLE MASK. PATIENT O2 SAT 97%.
[2017-05-17] MEDS ORDERED: levETIRAcetam 500 MG in NACL 0.9% 100 ML IV SCH (21:00)
--- NOTE | 2017-05-17 21:19 | NUR ---
GOT CALL FROM RN THAT PT'S SPO2 IS IN 80'S . CHANGED NC TO 6 L SIMPLE MASK. SPO2 NOW IS 97%. NO DISTRESS NOTED. WILL CONTINUE TO MONITOR.
--- NOTE | 2017-05-17 23:06 | NUR ---
RT IN THE ROOM GIVING BREATHING TREATMENT. NO S/S OF ACUTE DISTRESS NOTED, WILL CONTINUE TO MONITOR
[2017-05-18] VITALS: BP 113/66
--- NOTE | 2017-05-18 00:13 | NUR ---
PATIENT ASLEEP, RESPIRATION EVEN AND UNLABORED, NO S/S OF ACUTE DISTRESS NOTED. VITAL SIGNS TAKEN, WITH IN NORMAL RANGE, CALL LIGHT WITHIN REACH, SAFETY MEASURE ENSUED, WILL CONTINUE TO MONITOR.
[2017-05-18] MEDS: PIPER/TAZO 2.25GM/D5W PREMIX 50 ML IV SCH ×4 (00:40→17:56)
[2017-05-18] MEDS: MILD SOAP AND WATER TP SCH ×2 (00:40→13:04)
--- NOTE | 2017-05-18 02:45 | NUR ---
PATIENT ASLEEP, RESPIRATION EVEN AND UNLABORED, O2 SAT 99%. NO S/S OF ACUTE DISTRESS NOTED. CALL LIGHT WITHIN REACH, SAFETY MEASURE ENSURED, WILL CONTINUE TO MONITOR
[2017-05-18] MEDS: ALBUTEROL SULFATE/IPRATROPIU 3 ML SOL IH SCH ×6 (03:30→23:05)
--- NOTE | 2017-05-18 03:36 | NUR ---
CHANGE SIMPLE MASK TO NC AGAIN 4L , PT SAT 98% AT THIS TIME
--- NOTE | 2017-05-18 03:54 | NUR ---
PATIENT WAS UNABLE TO TOLERATE NC DUE TO LOW O2 SAT. RT CHANGED NC TO SIMPLE MASK 5L O2, PATIENT O2 SAT 98%. NO S/S OF ACUTE DISTRESS NOTED, WILL CONTINUE TO MONITOR
[2017-05-18 04:00] VITALS: BP 98/54
--- NOTE | 2017-05-18 04:03 | NUR ---
PT IS MOUTH BREATHER AND I NEED TO SWITCH BACH TO SIMPLE MASK , PT SAT 98% AT THIS TIME, NO RESP DISTRESS NOTED.
[2017-05-18 06:15] LABS: HEMATOCRIT 24.4 % (36-52); HEMOGLOBIN 7.6 g/dL (12.0-18.0); MEAN CORPUSCULAR HEMOGLOBIN 29 pg (27-31); MEAN CORPUSCULAR HGB CONC 31 g/dL (33-37); MEAN CORPUSCULAR VOLUME 92 fL (80-94); PLATELET COUNT (AUTO) 76 K/uL (140-450); RED BLOOD CELL COUNT(AUTO) 2.66 MIL/uL (4.20-6.10); RED CELL DISTRIBUTION WIDTH 19.2 % (11.6-13.7); WHITE BLOOD COUNT (AUTO) 11.7 K/uL (4.8-10.8)
[2017-05-18 06:30] LABS: ANION GAP 1.4 (8-16); CALCIUM 7.8 mg/dL (8.5-10.1); CREATININE 0.4 mg/dL (0.7-1.3); POTASSIUM 4.1 mmol/L (3.5-5.1)
[2017-05-18 06:41] LABS: MAGNESIUM 1.9 mg/dL (1.8-2.4); PHOSPHORUS 3.4 mg/dL (2.5-4.9)
--- NOTE | 2017-05-18 06:52 | NUR ---
PATIENT RESTING IN BED, NO S/S OF ACUTE DISTRESS NOTED, RESPIRATION EVEN AND UNLABORED, WITH SIMPLE MASK 5L O2. CALL LIGHT WITHIN REACH, SAFETY MEASURE ENSURED, WILL CONTINUE TO MONITOR.
--- NOTE | 2017-05-18 06:54 | NUR ---
PATIENT RESTING IN BED, NO S/S OF ACUTE DISTRESS NOTED, RESPIRATION EVEN AND UNLABORED, CALL LIGHT WITHIN REACH, SAFETY MEASURE ENSURED, WILL CONTINUE TO MONITOR.
[2017-05-18 07:14] LABS: CARBON DIOXIDE 42.7 mmol/L (21-32)
[2017-05-18 07:23] LABS: BAND % (MANUAL) 8 % (0-8); EOSINOPHILS % (MANUAL) 11 % (0-4); LYMPHOCYTES % (MANUAL) 5 % (20-46); MONOCYTES % (MANUAL) 8 % (5-12); NEUTROPHILS % (MANUAL) 68 (43-65)
[2017-05-18 07:25] LABS: PLATELET ESTIMATE DECREASED
[2017-05-18] MEDS: NACL 0.45% 1,000 ML IV SCH (07:25)
[2017-05-18 07:26] LABS: ANISOCYTOSIS 1+
--- NOTE | 2017-05-18 07:34 | NUR ---
ENDORSED PLAN OF CARE TO DAY RN. PATIENT IS IN STABLE CONDITION.
--- NOTE | 2017-05-18 07:35 | NUR ---
PT AWAKE AND ALERT WITH TRACING, APHASIC WITH NO SIGNS OF ACUTE DISTRESS. BOWEL SOUNDS ACTIVE IN ALL 4 QUADRANTS, GASTROSTOMY TUBE IN PLACE PATENT, NO RESIDUAL AT 20ML PER HOUR. WITH 100 ML WATER FLUSH Q 6 HOURS. INCONTINENT DERMATITIS WITH DTI ON NOSEBRIDGE DOULA. BEDBOUND. IV PATENT AND ASYMPTOMATIC. ON OXYGEN 4L VIA NC. ON TELE MONITOR DISPLAYING SINUS RHYTHM. RE-ORIENTED PT TO HOSPITAL AND UNIT, PT UNABLE TO COMPREHEND. BED IN LOW POSITION WITH BILATERAL HALF SIDE RAILS UP, CALL LIGHT WITHIN REACH.
[2017-05-18 08:00] VITALS: BP 97/63
[2017-05-18] MEDS: HYDRAGUARD CREAM TP SCH ×2 (09:23→20:54)
[2017-05-18] MEDS: LACTOBACILLUS RHAMNOSUS GG 1 EACH CAP PO SCH (09:23)
--- NOTE | 2017-05-18 09:50 | NUR ---
PT OXYGEN DESATURATING DOWN TO 78 AT LOWEST ON NASAL CANNULA AT 4L. PUT FACE MASK ON PATIENT AND PUT OXYGEN AT 9L HOWEVER PATIENT OXYGEN SATURATION WAS STILL RANGING FROM 80 TO 99%. CALLED RT AND THE RESIDENTS TO HELP. PER DR EVANGELISTA GAVE 2MG IV PUSH MORPHINE AND PUT PATIENT ON BIPAP.
[2017-05-18 10:02] LABS: BLOOD GAS PH 7.478 (7.35-7.45)
[2017-05-18 10:03] LABS: BLOOD GAS PCO2 51.7 mmHg (20-50)
[2017-05-18 10:04] LABS: BLOOD GAS HCO3 37.5 mmol/L; BLOOD GAS O2 SAT% 98.7 % (92.0-98.5); BLOOD GAS PO2 126.6 mmHg
[2017-05-18 10:05] LABS: BLOOD GAS BASE EXCESS 12.5 mmol/L (-2.0-2.0)
--- NOTE | 2017-05-18 10:11 | NUR ---
PT PLACED ON BIPAP. SETTING 16/6 RR 14, FIO2 OF 30% PER DR. SRINIVASAN. DUE TO HIGH CO2, I\L TX GIVEN WITH DUONEB 3ML WITH NO ADVERSE REACTION. POST TX. PT IS RESTING AFTER SEDATION
--- NOTE | 2017-05-18 10:15 | NUR ---
PATIENT ON BIPAP OXYGEN SATURATION AT 99%, WILL CONTINUE TO MONITOR.
--- NOTE | 2017-05-18 11:02 | NUR ---
ABG DRAWN ON LB WITHOUT INCIDENT AND AT 1115 RESULTS WERE GIVEN TO WITH CHANGES MADE TO BIPAP 18\7 RR 16 AND TO KEEP O2 SAT ABOVE 90% AND PHUC DESOUZA NOTIFIED
[2017-05-18 11:23] LABS: BLOOD GAS PCO2 70.6 mmHg (20-50); BLOOD GAS PH 7.389 (7.35-7.45)
[2017-05-18 11:24] LABS: BLOOD GAS BASE EXCESS 14.8 mmol/L (-2.0-2.0); BLOOD GAS HCO3 41.7 mmol/L; BLOOD GAS PO2 54.9 mmHg
[2017-05-18 11:25] LABS: BLOOD GAS O2 SAT% 90.8 % (92.0-98.5)
[2017-05-18 12:00] VITALS: BP 94/68
--- NOTE | 2017-05-18 12:17 | NUR ---
05/18/17 RD FOLLOW-UP ASSESSMENT COMPLETED PLEASE REFER TO NUTRITION ASSESSMENT UNDER CARE ACTIVITY FOR ESTIMATED NUTRITIONAL NEEDS. 1. IF PT TO REMAIN ON BI-PAP, CONTINUE TF - NUTREN PULMONARY AT 20 ML/HR, ADVANCE 10 ML Q8H TO A GOAL RATE OF 40 ML/HR (PROVIDES 1440 KCAL, 65 G PROTEIN, 750 ML FREE WATER) 2. IF PT TO BE INTUBATED, CONSIDER DECREASING TF RATE - NUTREN PULMONARY AT GOAL RATE OF 30 ML/HR (PROVIDES 1080 KCAL, 48 G PROTEIN, 563 ML FREE WATER) 2. RD TO FOLLOW-UP 2-3 DAYS; HIGH RISK SHANI KRISHNAMURTHY RD
--- NOTE | 2017-05-18 13:02 | NUR ---
BIPAP CHECK. PT IS AGITATED, PHUC DESOUZA NOTIFIED. CHANGES MADE TO BIPAP. TITRATED FIO2 DOWN TO 28%.
[2017-05-18] MEDS ORDERED: CLINICAL MONITORING MC PRN (13:20)
--- NOTE | 2017-05-18 15:15 | NUR ---
BIPAP CHECK, I\L TX GIVEN WITH DUONEB 3ML WITH NO ADVERSE REACTION POST TX, PT IS AWAKE WITH NO SIGNS OF DISTRESS NOTED AT THIS TIME
[2017-05-18] MEDS ORDERED: FUROSEMIDE 20 MG/2 ML VIAL IVP SCH (15:20)
--- NOTE | 2017-05-18 15:53 | NUR ---
Social Service Note: I spoke with patient's cataloging assistant at [facility], Annita Ramirez , confirmed she is patient's cataloging assistant. She requested an update of patient's medical condition, transferred phone call to patient's nurse.
[2017-05-18 16:00] VITALS: BP 105/64
--- NOTE | 2017-05-18 16:57 | NUR ---
BIPAP CHECK, PT IS AWAKE WITH NO SIGNS OF DISTRESS NOTED NO CHANGES MADE TO BIPAP
--- NOTE | 2017-05-18 19:30 | NUR ---
PT AWAKE AND ALERT, NO SIGNS OF ACUTE DISTRESS. ENDORSED TO [employer] PATCHER NURSE FOR CONTINUITY OF CARE.
--- NOTE | 2017-05-18 19:31 | NUR ---
RECEIVED REPORT FROM MORNING NURSE. PT IS AWAKE AND ALERT WITH TRACES, APHASIC. WITH BIPAP, FIO2 OF 28%. ON G TUBE, PATENT AND INTACT, WITH FEEDING OF NUTREN AT 20 ML/HR WITH 100 ML FLUSH EVERY 6 HOURS. WITH INCONTINENT DERMATITIS WITH DTI ON THE NOSEBRIDGE. BEDBOUND. ON TELE MONITORING. PLAN OF CARE DISCUSSED WITH PATIENT, BUT NEEDS REINFORCEMENT. CALL LIGHT WITHIN REACH. SAFETY CHECKS IN PLACE. WILL CONTINUE TO MONITOR.
[2017-05-18 20:00] VITALS: BP 111/53
--- NOTE | 2017-05-18 20:53 | NUR ---
HEPARIN WAS HELD DUE TO PLATELETS 76, NON-ADMINISTERED PER MD ORDER.
--- NOTE | 2017-05-18 22:50 | NUR ---
RT WAS CALLED DUE TO PT DESATURATING.
--- NOTE | 2017-05-18 23:00 | NUR ---
RT REMOVED BIPAP FROM THE PT AND WAS PUT ON NC AT 3 L. PT NOT IN DISTRESS. WITH O2 AT 100%. RT TO GIVE BREATHING TREATMENT. WILL CONTINUE TO MONITOR CLOSELY.
--- NOTE | 2017-05-18 23:11 | NUR ---
2300 PATIENT WAS AGITATED WITH BIPAP TOOK PT OFF BIPAP AND PLACED PT ON 3LNC. SATS 100% NO SOB NOTED.. PT GIVEN HHNTX. BS ARE CLEAR AT THIS TIME WILL MONITOR PT.
[2017-05-19] VITALS: BP 112/65
--- NOTE | 2017-05-19 | NUR ---
PT SEEN AGITATED. NO S/S OF DISTRESS. ON O2 VIA NC AT 3 L, WITH O2 SAT RANGING FROM 95 - 100%. VITAL SIGNS ARE STABLE. WILL CONTINUE TO MONITOR. CALL LIGHT WITHIN REACH.
[2017-05-19] MEDS: MILD SOAP AND WATER TP SCH ×2 (01:00→13:44)
--- NOTE | 2017-05-19 02:30 | NUR ---
PT SEEN ON BED ASLEEP COMFORTABLY, NO S/S OF DISTRESS. WITH O2 VIA NC AT 2L, O2 SAT AT 95 - 100%. WILL CONTINUE TO MONITOR. CALL LIGHT WITHIN REACH.
[2017-05-19] MEDS: ALBUTEROL SULFATE/IPRATROPIU 3 ML SOL IH SCH ×3 (03:24→10:52)
[2017-05-19 04:00] VITALS: BP 110/59
--- NOTE | 2017-05-19 04:00 | NUR ---
VITAL SIGNS TAKEN AND STABLE. PT SEEN ASLEEP. NO S/S OF DISTRESS. ON O2 VIA NC AT 3 L. WILL CONTINUE TO MONITOR. CALL LIGHT WITHIN REACH. SAFETY CHECKS IN PLACE.
[2017-05-19 06:14] LABS: HEMATOCRIT 22.9 % (36-52); HEMOGLOBIN 7.5 g/dL (12.0-18.0); MEAN CORPUSCULAR HEMOGLOBIN 29 pg (27-31); MEAN CORPUSCULAR HGB CONC 33 g/dL (33-37); MEAN CORPUSCULAR VOLUME 89 fL (80-94); PLATELET COUNT (AUTO) 149 K/uL (140-450); RED BLOOD CELL COUNT(AUTO) 2.57 MIL/uL (4.20-6.10); RED CELL DISTRIBUTION WIDTH 17.9 % (11.6-13.7); WHITE BLOOD COUNT (AUTO) 11.5 K/uL (4.8-10.8)
[2017-05-19 06:45] LABS: EOSINOPHILS % (MANUAL) 4 % (0-4); LYMPHOCYTES % (MANUAL) 13 % (20-46); MONOCYTES % (MANUAL) 11 % (5-12); NEUTROPHILS % (MANUAL) 72 (43-65)
[2017-05-19 06:48] LABS: CALCIUM 7.9 mg/dL (8.5-10.1); CREATININE 0.4 mg/dL (0.7-1.3)
[2017-05-19 06:54] LABS: CARBON DIOXIDE 39.2 mmol/L (21-32); POTASSIUM 3.1 mmol/L (3.5-5.1)
[2017-05-19 06:57] LABS: ANION GAP 4.9 (8-16)
--- NOTE | 2017-05-19 07:20 | NUR ---
ENDORSED TO MORNING RN FOR CONTINUITY OF CARE. IS IN STABLE CONDITION.
[2017-05-19 07:22] LABS: BLOOD GAS PH 7.513 (7.35-7.45)
[2017-05-19 07:23] LABS: BLOOD GAS HCO3 41.9 mmol/L; BLOOD GAS PCO2 53.4 mmHg (20-50); BLOOD GAS PO2 76.5 mmHg
[2017-05-19 07:25] LABS: BLOOD GAS O2 SAT% 95.8 % (92.0-98.5)
--- NOTE | 2017-05-19 07:25 | NUR ---
RECEIVED REPORT FROM [facility] BYRNE. PT IS RESTING IN BED, PT IS APHASIC, BEDBOUND, CONTRACTURE ON BOTH UPPER AND LOWER EXTREMITIES, PT HAS IV ON THE RT FOREARM, PATENT, INTACT, FLUSHING WELL, G- TUBE ON LEFT SIDE OF ABDOMEN, NO RESIDUAL NOTED, FLUSHED WITH 100ML OF NS, PT IS ON O2 2L NC, PT HAS INCONTINENT DERMATITIS, NO S/S OF RESPIRATORY DISTRESS OR DISCOMFORT NOTED, SAFETY/FALL/SEIZURE PRECAUTIONS ARE IN PLACE, DISCUSSED PLAN OF CARE WITH PT, PT UNABLE TO COMPREHEND, CALL LIGHT IS WITHIN REACH, WILL CONTINUE TO MONITOR.
[2017-05-19 08:00] VITALS: BP 122/63
[2017-05-19] MEDS ORDERED: ZOS2.25I IV (08:24)
[2017-05-19] MEDS ORDERED: Cream Base TP (08:35)
[2017-05-19] MEDS ORDERED: LACT10CA PO (08:35)
[2017-05-19] MEDS ORDERED: ACET-1182 PO (08:35)
[2017-05-19] MEDS ORDERED: IPRA3AMP IH (08:35)
[2017-05-19] MEDS ORDERED: [UNRECOGNIZED DRUG - CODE] PO (08:35)
--- NOTE | 2017-05-19 09:30 | NUR ---
PT RESTING IN BED, NO S/S OF RESPIRATORY DISTRESS OR DISCOMFORT NOTED, CALL LIGHT WITHIN REACH, WILL CONTINUE TO MONITOR.
[2017-05-19] MEDS: LACTOBACILLUS RHAMNOSUS GG 1 EACH CAP PO SCH (09:37)
[2017-05-19] MEDS: NYSTATIN 500 MU/5 ML UDC PO SCH ×2 (09:37→13:44)
[2017-05-19] MEDS: HYDRAGUARD CREAM TP SCH (09:47)
--- NOTE | 2017-05-19 11:20 | NUR ---
SXN PT ORALLY WITH MIN AMT YELLOWISH SECS PT SAT .99 ON 3L[M NC NO RESP DISTRESS NOTED
--- NOTE | 2017-05-19 11:27 | NUR ---
CM NOTE PATIENT TO BE PICKED UP VIA GURNEY BY [facility] GOING TO [facility] [place]C. ETA 1400. MADE AWARE THAT PATIENT WILL BE NEEDING 02 DURING TRANSPORT. TASHA RAYGOZA MADE AWARE.
--- NOTE | 2017-05-19 11:35 | NUR ---
PT SLEEPING IN BED AT THIS TIME, WILL CONTINUE TO MONITOR.
[2017-05-19 11:44] LABS: BLOOD GAS BASE EXCESS 17.1 mmol/L (-2.0-2.0)
[2017-05-19] MEDS ORDERED: POTA10TA10 PEG (13:22)
--- NOTE | 2017-05-19 13:30 | NUR ---
PT RESTING IN BED, NO S/S OF RESPIRATORY DISTRESS OR DISCOMFORT NOTED, CALL LIGHT WITHIN REACH.
--- NOTE | 2017-05-19 14:20 | NUR ---
PT DISCHARGE INSTRUCTIONS GIVEN, ID WRIST BAND REMOVED, IV ON RT FOREARM LEFT IN PLACE, PT STABLE UPON DISCHARGE.
== END 2017-05-19 14:20 | DRG 720 ==
LOC: MED 05:46 → MIC 09:08 → MTU 05-17 06:05
PROVIDERS: ADMIT Family Medicine; ATTEND Family Medicine
PROC: 02HV33Z Insertion of Infusion Device into Superior Vena Cava, Percutaneous Approach (ICD-10-PCS; principal; 2017-05-14)
PROC: 5A09457 Assistance with Respiratory Ventilation, 24-96 Consecutive Hours, Continuous Positive Airway Pressure (ICD-10-PCS; 2017-05-14)
DX: A41.2 Sepsis due to unspecified staphylococcus (principal); N17.0 Acute kidney failure with tubular necrosis; R65.21 Severe sepsis with septic shock; J69.0 Pneumonitis due to inhalation of food and vomit; J96.00 Acute respiratory failure, unspecified whether with hypoxia or hypercapnia; J96.01 Acute respiratory failure with hypoxia; E43 Unspecified severe protein-calorie malnutrition; D68.9 Coagulation defect, unspecified; D69.6 Thrombocytopenia, unspecified; E87.2 Acidosis; E83.42 Hypomagnesemia; E87.0 Hyperosmolality and hypernatremia; E87.6 Hypokalemia; E83.51 Hypocalcemia; G80.9 Cerebral palsy, unspecified; R53.2 Functional quadriplegia; J45.909 Unspecified asthma, uncomplicated; F79 Unspecified intellectual disabilities; Z66 Do not resuscitate; D63.8 Anemia in other chronic diseases classified elsewhere; E11.9 Type 2 diabetes mellitus without complications; Q87.1 Congenital malformation syndromes predominantly associated with short stature; Q87.40 Marfan syndrome, unspecified; Z93.1 Gastrostomy status; Z74.01 Bed confinement status; Z79.899 Other long term (current) drug therapy; Z68.1 Body mass index [BMI] 19.9 or less, adult
CPT/HCPCS: 36415; 36600; 71010; 80048; 80053; 82150; 82272; 82607; 82728; 82746; 82803; 83036; 83540; 83605; 83690; 83735; 83880; 84100; 84439; 84443; 84484; 85025; 85045; 85379; 85610; 87040; 87081; 87186; 93005; 94640; 94660; 96365; 96368; 99291; J1644; J1940; J1953; J1956; J2270; J2405; J2543; J3370; J3475; J3480; J3490; J7030; J7060; J7620; Q0092